=== PATIENT | male | born 1985 | race Caucasian/White ===

== ENCOUNTER 2021-01-29 16:01 | Emergency (ER) | payer BC ==
[~2021-01-29] VITALS: Ht 175.3 cm; Wt 67.7 kg
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
[2021-01-29 16:55] VITALS: BP 130/79
== END 2021-01-29 16:56 | disposition home or self-care (01) ==
LOC: ER 16:01
DX: S70.11XA Contusion of right thigh, initial encounter (principal); S70.02XA Contusion of left hip, initial encounter; V86.99XA Unspecified occupant of other special all-terrain or other off-road motor vehicle injured in nontraffic accident, initial encounter; Y93.89 Activity, other specified; Y92.89 Other specified places as the place of occurrence of the external cause; Y99.8 Other external cause status
CPT/HCPCS: 99282